=== PATIENT | female | born 1965 | race Caucasian/White ===

== ENCOUNTER 2018-07-12 09:08 | Emergency (ER) | payer OTHER ==
[~2018-07-12] VITALS: Ht 157.5 cm; Wt 108.9 kg
[2018-07-12] MEDS ORDERED: LOVA40 PO (09:55)
[2018-07-12] MEDS ORDERED: HYDCHL25 PO (09:55)
[2018-07-12] MEDS ORDERED: ACYC400 PO (09:56)
[2018-07-12] MEDS ORDERED: FENO160 PO (09:56)
[2018-07-12] MEDS ORDERED: VENL37.5 PO (09:57)
[2018-07-12] MEDS ORDERED: OXYC5 PO (09:57)
[2018-07-12] MEDS ORDERED: HYDR1TAB94 PO (09:57)
== END 2018-07-12 11:10 | disposition short-term general hospital (02) ==
LOC: ER 09:08
DX: T83.022A Displacement of nephrostomy catheter, initial encounter (principal); Z79.899 Other long term (current) drug therapy
CPT/HCPCS: 99284